=== PATIENT | female | born 1955 | race Caucasian/White ===

== ENCOUNTER 2018-07-10 21:17 | Emergency (ER) | payer OTHER ==
[2018-07-10] MEDS: NAPROXEN 500 MG TAB PO (23:03)
== END 2018-07-10 23:42 | disposition home or self-care (01) ==
LOC: E/R 21:17
DX: S29.012A Strain of muscle and tendon of back wall of thorax, initial encounter (principal); I10 Essential (primary) hypertension; X50.0XXA Overexertion from strenuous movement or load, initial encounter; Y92.9 Unspecified place or not applicable; Z85.71 Personal history of Hodgkin lymphoma
CPT/HCPCS: 99282

== ENCOUNTER 2018-07-13 07:53 | Emergency (ER) | payer OTHER, MEDICARE ==
[2018-07-13] MEDS: KETOROLAC 30 MG INJ IM (09:06)
== END 2018-07-13 09:41 | disposition home or self-care (01) ==
LOC: FTE 07:53
DX: S29.012A Strain of muscle and tendon of back wall of thorax, initial encounter (principal); I10 Essential (primary) hypertension; X58.XXXA Exposure to other specified factors, initial encounter; Y92.9 Unspecified place or not applicable; Z85.71 Personal history of Hodgkin lymphoma
CPT/HCPCS: 96372; 99284-25